=== PATIENT | female | born 1960 | race Caucasian/White ===

== ENCOUNTER → 2018-02-09 | Outpatient (CLI) | payer OTHER ==
[~2018-02-09] MED LIST: ATOR80 PO; VENL75 PO
[2018-02-09 16:44] LABS: Source, Urine Clean Catch
[2018-02-09 17:56] LABS: Bilirubin, Urine Neg (Neg); Blood, Urine 3+ (Neg); Glucose Qualitative, Urine Neg (Neg); Ketones, Urine Neg (Neg); Leukocyte Esterase, Urine 1+ (Neg); Nitrite, Urine Neg (Neg); Protein, Urine Neg (Neg); Specific Gravity, Urine 1.025 (1.003-1.022); Urobilinogen, Urine NORM (Normal)
[2018-02-09 18:13] LABS: Appearance, Urine Clear (Clear); Color, Urine Yellow (P-Yellow)
[2018-02-09 18:15] LABS: Bacteria Few /hpf; Squamous Epithelial Cells Few /hpf (Few)
== END | disposition home or self-care (01) ==
LOC: LAB 16:43 → LAB SHORT 16:43 → EDSTATUS 02-09 14:15 → LAB FUT 02-09 14:15
PROVIDERS: Internal Medicine
DX: R30.0 Dysuria (principal)
CPT/HCPCS: 81001; 87086

== ENCOUNTER → 2018-03-03 | Outpatient (CLI) | payer OTHER | END | disposition home or self-care (01) | LOC: PLD 07:57 → LAB SHORT 07:57 | DX: D22.5 Melanocytic nevi of trunk (principal) | CPT/HCPCS: 88305 ==

== ENCOUNTER → 2019-06-19 | Outpatient (CLI) | payer BC ==
[2019-06-21 10:25] LABS: Stool Occult Blood Guaiac 1 Neg (Neg)
[2019-06-21 10:26] LABS: Stool Occult Blood Guaiac 2 Neg (Neg); Stool Occult Blood Guaiac 3 Neg (Neg)
== END | disposition home or self-care (01) ==
LOC: LAB 06:45 → LAB SHORT 06:45 → LAB FUT 06-06 14:55
PROVIDERS: Internal Medicine
DX: D50.9 Iron deficiency anemia, unspecified (principal)
CPT/HCPCS: 82270; 82272

== ENCOUNTER → 2022-02-02 | Outpatient (CLI) | payer BC ==
[~2022-02-02] MED LIST changes: +ATOR20 PO; +ESTRADIOL1 MG PO; +IRBE75 PO; +VENL150ER PO
[2022-02-03 10:07] LABS: Stool Occult Blood Guaiac 1 Neg (Neg)
[2022-02-03 10:08] LABS: Stool Occult Blood Guaiac 2 Neg (Neg)
[2022-02-03 10:09] LABS: Stool Occult Blood Guaiac 3 Neg (Neg)
== END | disposition home or self-care (01) ==
LOC: LAB SHORT 15:30 → LAB 15:30 → LAB FUT 01-08 14:15
PROVIDERS: Internal Medicine
DX: L65.9 Nonscarring hair loss, unspecified (principal); D64.9 Anemia, unspecified
CPT/HCPCS: 82272

== ENCOUNTER → 2023-02-12 | Outpatient (CLI) | payer BC ==
[2023-02-12 16:28] LABS: Source, Urine Clean Catch
[2023-02-12 18:56] LABS: Appearance, Urine Turbid (Clear); Bilirubin, Urine Neg (Neg); Blood, Urine 1+ (Neg); Color, Urine Yellow (P-Yellow); Glucose Qualitative, Urine 1+ (Neg); Ketones, Urine Neg (Neg); Leukocyte Esterase, Urine Neg (Neg); Nitrite, Urine Neg (Neg); Protein, Urine 1+ (Neg); Specific Gravity, Urine 1.025 (1.003-1.022); Urobilinogen, Urine NORM (Normal)
[2023-02-12 19:17] LABS: Amorphous Heavy (0-Heavy); Red Blood Cells, Urine 0-2 /hpf (0-2); White Blood Cells, Urine 0-2 /hpf (0-5)
[2023-02-12 19:18] LABS: Bacteria Mod /hpf; Squamous Epithelial Cells Few /hpf (Few)
== END | disposition home or self-care (01) ==
LOC: LAB 16:27 → LAB SHORT 16:27
PROVIDERS: Internal Medicine
DX: R31.9 Hematuria, unspecified (principal)
CPT/HCPCS: 81001; 87086

== ENCOUNTER → 2025-11-09 | Outpatient (CLI) | payer BC ==
[2025-11-12 12:00] LABS: COPPER,SERUM/PLASMA 154.5 ug/dL (80.0-155.0)
[2025-11-12 16:00] LABS: VITAMIN B1,WHOLE BLOOD 205 nmol/L (70-180)
== END ==
LOC: LAB FUT 10-03 13:55 → LAB 11:54 → LAB SHORT 11:54
PROVIDERS: Internal Medicine
DX: E55.9 Vitamin D deficiency, unspecified (principal); D50.9 Iron deficiency anemia, unspecified; E53.8 Deficiency of other specified B group vitamins
CPT/HCPCS: 36415; 82306; 82525; 82607; 84425